=== PATIENT | male | born 1975 | race Caucasian/White ===

== ENCOUNTER 2016-08-01 08:30 | Emergency (ER) | payer OTHER ==
[~2016-08-01] VITALS: Ht 172.7 cm; Wt 69.5 kg
[2016-08-01 10:34] VITALS: BP 130/75
== END 2016-08-01 10:34 | disposition home or self-care (01) ==
LOC: ED 08:30
DX: R09.1 Pleurisy (principal)

== ENCOUNTER 2017-12-28 12:41 | Emergency (ER) | payer OTHER ==
[~2017-12-28] VITALS: Ht 172.7 cm; Wt 68.9 kg
[2017-12-28 12:44] VITALS: Ht 172.7 cm; Wt 68.9 kg
[2017-12-28 14:44] LABS: BASOPHIL % 0.4 % (0-2); PLATELET COUNT 176 x10^3mcL (130-400); RED CELL DISTRIBUTION WIDTH 12.8 % (11.5-14.5)
[2017-12-28 15:12] LABS: CALCIUM 9.3 mg/dL (8.5-10.1); CARBON DIOXIDE 31.7 mmol/L (21-32); CHLORIDE SERUM 101 mmol/L (98-107); CREATININE SERUM 0.8 mg/dL (0.7-1.3); GFR1 > 60 mL/min; GLUCOSE SERUM 93 mg/dL (74-106); SODIUM SERUM 137 mmol/L (136-145)
[2017-12-28 15:19] LABS: AMPHETAMINE QUAL UR NONE DETECTED (See below)
[2017-12-28 15:25] LABS: ALBUMIN 4.4 g/dL (3.4-5.0); ALKALINE PHOSPHATASE 69 U/L (46-116); ALT/SGPT 24 U/L (16-63); AST/SGOT 19 U/L (15-37); BILIRUBIN TOTAL 0.8 mg/dL (0.20-1.00)
[2017-12-28 15:27] LABS: TOTAL PROTEIN, SERUM 8.4 g/dL (6.4-8.2)
[2017-12-28 15:49] VITALS: BP 126/72
== END 2017-12-28 15:50 | disposition home or self-care (01) ==
LOC: ED 12:41
PROVIDERS: Emergency Medicine
DX: S06.0X0A Concussion without loss of consciousness, initial encounter (principal); W22.8XXA Striking against or struck by other objects, initial encounter; Y93.89 Activity, other specified; Y92.89 Other specified places as the place of occurrence of the external cause; Y99.8 Other external cause status
CPT/HCPCS: 36415

== ENCOUNTER 2018-08-23 12:06 | Emergency (ER) | payer OTHER ==
[~2018-08-23] VITALS: Ht 172.7 cm; Wt 68.0 kg
[2018-08-23 12:19] VITALS: Ht 172.7 cm; Wt 68.0 kg
[2018-08-23 16:30] VITALS: BP 125/68
== END 2018-08-23 16:31 | disposition home or self-care (01) ==
LOC: ED 12:06
DX: T17.928A Food in respiratory tract, part unspecified causing other injury, initial encounter (principal); X58.XXXA Exposure to other specified factors, initial encounter; Y93.89 Activity, other specified; Y92.89 Other specified places as the place of occurrence of the external cause; Y99.8 Other external cause status

== ENCOUNTER 2020-02-05 08:54 | Emergency (ER) | payer OTHER ==
[~2020-02-05] VITALS: Ht 172.7 cm; Wt 67.3 kg
[2020-02-05 08:58] VITALS: Ht 172.7 cm; Wt 67.3 kg
[2020-02-05 10:22] LABS: CALCIUM 9.2 mg/dL (8.5-10.1); CARBON DIOXIDE 31.3 mmol/L (21-32); CHLORIDE SERUM 103 mmol/L (98-107); CREATININE SERUM 0.9 mg/dL (0.7-1.3); GFR1 > 60 mL/min; GLUCOSE SERUM 97 mg/dL (74-106); POTASSIUM SERUM 4.6 mmol/L (3.5-5.1); SODIUM SERUM 139 mmol/L (136-145)
[2020-02-05 10:27] LABS: ALBUMIN 4.4 g/dL (3.4-5.0); ALKALINE PHOSPHATASE 63 U/L (46-116); ALT/SGPT 19 U/L (16-63); AST/SGOT 16 U/L (15-37); TOTAL PROTEIN, SERUM 7.7 g/dL (6.4-8.2)
[2020-02-05 11:29] LABS: PLATELET COUNT 175 x10^3mcL (130-400); RED CELL DISTRIBUTION WIDTH 11.9 % (11.5-14.5)
[2020-02-05 11:33] LABS: BASOPHIL % 3.7 % (0-2)
[2020-02-05 12:10] VITALS: BP 118/76
== END 2020-02-05 12:10 | disposition home or self-care (01) ==
LOC: ED 08:54
PROVIDERS: Emergency Medicine
DX: R10.31 Right lower quadrant pain (principal); R10.32 Left lower quadrant pain